=== PATIENT | female | born 1940 | race Caucasian/White ===

== ENCOUNTER 2017-02-12 07:58 | Inpatient (IN) | payer OTHER, BC ==
[~2017-02-12] VITALS: Ht 165.1 cm; Wt 43.8 kg
[2017-02-12] VITALS (25 sets, daily range): BP systolic 99–169; BP diastolic 38–150
--- NOTE | ~2017-02-12 | EKG ---
[place] [address] [place] [address] ELECTROCARDIOGRAM REPORT Name: LON COTA Room #: [facility].#: [id number] Admission: Attend Phys: Discharge: Date of : 36 Report #: [id number] THIS REPORT FOR: //name// [facility] ED Test Date: 2017-02-12 Test Time: 08:01:17 Pat Name: LON COTA Department: Room: Gender: F Personal Injury Attorney: : 1940 Requested By: Joselin Bonilla Order Number: [id number] MD: Fidel Howard Measurements Intervals [place] Rate: 78 P: 75 OR: 139 QRS: -40 QRSD: 91 T: 43 QT: 399 QTc: 455 Interpretive Statements Sinus rhythm Left axis deviation Anterior infarct, old No previous ECG available for comparison Electronically Signed On 02-12-2017 8:11:28 CDT by Fidel Howard [email or web address] <ELECTRONICALLY SIGNED> By: Fidel Howard MD, [facility] 02/12/17 0811 08 0801 Fidel Howard MD, FACC /EPI
[2017-02-12] MEDS ORDERED: LANTUS SUBQ ×2 (08:10)
[2017-02-12] MEDS ORDERED: NEXIUM40 MG PO (08:11)
[2017-02-12] MEDS ORDERED: SYNTHROID125 MCG PO (08:11)
[2017-02-12] MEDS ORDERED: LO-DOSE ASPIRIN81 M1 PO (08:12)
[2017-02-12] MEDS ORDERED: VITAMINC500 PO (08:12)
[2017-02-12] MEDS ORDERED: SINEMET 25-1001 EAC1 PO (08:13)
[2017-02-12] MEDS ORDERED: CEFPODOXIME PR200 M1 PO (08:14)
[2017-02-12] MEDS ORDERED: CYMBALTA30 MG PO (08:14)
[2017-02-12] MEDS ORDERED: ZESTRIL20 MG PO (08:14)
[2017-02-12] MEDS ORDERED: MYRBETRIQ25 MG PO (08:15)
[2017-02-12] MEDS ORDERED: MIDODRINE HCL 55 M1 PO (08:15)
[2017-02-12] MEDS ORDERED: NUPLAZID17 MG PO (08:15)
[2017-02-12 08:16] LABS: ABSOLUTE NEUTROPHILS 4.8 thou/uL (1.4-8.2); BASOPHILS 0.7 % (0.0-2.0); EOSINOPHILS 1.1 % (0.0-3.0); HEMATOCRIT 40.9 % (37.0-47.0); LYMPHOCYTES 17.5 % (24.0-44.0); MCH 32.2 pg (26.0-34.0); MCHC 31.7 g/dL (28.0-37.0); MCV 101.6 fL (80.0-100.0); MONOCYTES 5.2 % (1.0-8.0); PLATELET COUNT 230 thou/uL (150-400); POLYS 75.5 % (36.0-66.0); RBC 4.02 mil/uL (4.20-5.00); RDW 16.9 % (10.5-14.5); WBC 6.4 thou/uL (4.0-11.0)
[2017-02-12] MEDS ORDERED: SEROQUEL 25 MG25 M1 PO (08:18)
[2017-02-12] MEDS ORDERED: ZINC SULFATE 2220 MG PO (08:21)
[2017-02-12 08:23] LABS: MANUAL DIFF NO
[2017-02-12 08:29] LABS: ANION GAP 20 mmol/L (7-16); BUN 33 mg/dL (7-18); CALCIUM 9.7 mg/dL (8.5-10.1); CHLORIDE 96 mmol/L (98-107); CO2 15 mmol/L (21-32); CREATININE 1.6 mg/dL (0.6-1.0); SODIUM 131 mmol/L (136-145)
[2017-02-12 08:30] LABS: GLUCOSE 727 mg/dL (74-106)
[2017-02-12 08:34] LABS: TROPONIN-I < 0.04 ng/mL (<0.04-0.07)
[2017-02-12 08:54] LABS: URINE BILIRUBIN NEGATIVE (Negative); URINE BLOOD NEGATIVE (Negative); URINE COLOR YELLOW; URINE GLUCOSE-RANDOM* 3+ (Negative); URINE KETONES 3+ (Negative); URINE NITRITE POSITIVE (Negative); URINE PROTEIN (DIPSTICK) NEGATIVE (Negative); URINE SPECIFIC GRAVITY <= 1.005 (1.003-1.035); URINE UROBILINOGEN 0.2 E.U./dl (0.2-1.0)
[2017-02-12 09:16] LABS: BACTERIA >30 Many /HPF (None Seen); CASTS None Seen /LPF (None Seen); CRYSTALS None Seen /LPF (None Seen); SQUAMOUS 0-3 Few /LPF (0-3); URINE RBC None Seen /HPF (0-2); URINE WBC 0-5 Rare /HPF (0-5)
[2017-02-12 09:45] LABS: ABG SAMPLE TYPE ARTERIAL; HCO3 9.9 mmol/L (22.0-26.0); LACTATE 3.02 mmol/L (0.5-2.0); O2(CT) 15.9 mL/dL (15.0-23.0); O2Hb 95.2 % (92.0-98.0); PCO2 24.4 mmHg (35.0-45.0); PO2 92.6 mmHg (80.0-100.0); STICK SITE R.BRACHIAL; pH 7.225 (7.360-7.450); sO2 95.8 % (92.0-98.0); tCO2 10.6 mmol/L (24.0-30.0)
[2017-02-12 14:17] LABS: CALCIUM 8.5 mg/dL (8.5-10.1); CREATININE 1.5 mg/dL (0.6-1.0)
[2017-02-12 14:24] LABS: POTASSIUM 3.6 mmol/L (3.5-5.1)
[2017-02-12 17:09] LABS: CALCIUM 8.3 mg/dL (8.5-10.1); CREATININE 1.4 mg/dL (0.6-1.0); POTASSIUM 3.4 mmol/L (3.5-5.1)
[2017-02-13] VITALS (9 sets, daily range): BP systolic 113–200; BP diastolic 63–110
[2017-02-13 04:41] LABS: HEMATOCRIT 37.8 % (37.0-47.0); HEMOGLOBIN 12.3 gm/dL (12.0-15.0); MCH 32.1 pg (26.0-34.0); MCHC 32.4 g/dL (28.0-37.0); MCV 98.9 fL (80.0-100.0); PLATELET COUNT 184 thou/uL (150-400); RBC 3.83 mil/uL (4.20-5.00); RDW 16.9 % (10.5-14.5); WBC 7.5 thou/uL (4.0-11.0)
[2017-02-13 04:45] LABS: MANUAL DIFF YES
[2017-02-13 06:23] LABS: CALCIUM 8.9 mg/dL (8.5-10.1)
[2017-02-13 06:24] LABS: POTASSIUM 4.7 mmol/L (3.5-5.1)
[2017-02-13 07:30] LABS: ABSOLUTE NEUTROPHILS 7.2 thou/uL (1.4-8.2); ANISOCYTOSIS SLIGHT; PLATELET ESTIMATE NORMAL; TOTAL CELL COUNT 100
[2017-02-14 04:00] VITALS: BP 145/65
[2017-02-14 06:36] LABS: ABSOLUTE NEUTROPHILS 2.9 thou/uL (1.4-8.2); BASOPHILS 0.7 % (0.0-2.0); EOSINOPHILS 4.2 % (0.0-3.0); HEMATOCRIT 34.3 % (37.0-47.0); HEMOGLOBIN 11.4 gm/dL (12.0-15.0); LYMPHOCYTES 21.2 % (24.0-44.0); MCH 32.7 pg (26.0-34.0); MCHC 33.3 g/dL (28.0-37.0); MCV 98.2 fL (80.0-100.0); MONOCYTES 6.9 % (1.0-8.0); PLATELET COUNT 168 thou/uL (150-400); RBC 3.49 mil/uL (4.20-5.00); RDW 16.9 % (10.5-14.5); WBC 4.4 thou/uL (4.0-11.0)
[2017-02-14 06:40] LABS: MANUAL DIFF NO
[2017-02-14 06:56] LABS: CALCIUM 8.7 mg/dL (8.5-10.1); CREATININE 0.9 mg/dL (0.6-1.0); POTASSIUM 4.4 mmol/L (3.5-5.1)
[2017-02-14 08:02] VITALS: BP 143/68
[2017-02-14 11:59] VITALS: BP 139/84
[2017-02-14 15:13] VITALS: BP 163/78
[2017-02-14 20:00] VITALS: BP 197/88
[2017-02-15 04:00] VITALS: BP 179/78
[2017-02-15 06:19] LABS: ABSOLUTE NEUTROPHILS 2.8 thou/uL (1.4-8.2); BASOPHILS 0.6 % (0.0-2.0); EOSINOPHILS 3.3 % (0.0-3.0); HEMOGLOBIN 11.5 gm/dL (12.0-15.0); LYMPHOCYTES 23.7 % (24.0-44.0); MCH 32.7 pg (26.0-34.0); MCHC 33.8 g/dL (28.0-37.0); MCV 96.7 fL (80.0-100.0); MONOCYTES 9.4 % (1.0-8.0); PLATELET COUNT 165 thou/uL (150-400); RBC 3.52 mil/uL (4.20-5.00); RDW 16.9 % (10.5-14.5); WBC 4.5 thou/uL (4.0-11.0)
[2017-02-15 06:28] LABS: CREATININE 0.9 mg/dL (0.6-1.0); POTASSIUM 3.8 mmol/L (3.5-5.1)
[2017-02-15 06:29] LABS: MANUAL DIFF NO
[2017-02-15 08:49] VITALS: BP 194/90
== END 2017-02-15 13:13 | DRG 637 ==
LOC: ER 07:58 → EROBS 09:56 → ICU 09:56 → 3W 02-13 12:43
PROVIDERS: Emergency Medicine; Family Medicine; Nurse Practitioner Acute Care
DX: E11.00 Type 2 diabetes mellitus with hyperosmolarity without nonketotic hyperglycemic-hyperosmolar coma (NKHHC) (principal); E43 Unspecified severe protein-calorie malnutrition; N17.1 Acute kidney failure with acute cortical necrosis; N39.0 Urinary tract infection, site not specified; Z68.1 Body mass index [BMI] 19.9 or less, adult; E87.5 Hyperkalemia; E03.9 Hypothyroidism, unspecified; G20 Parkinson's disease; F02.80 Dementia in other diseases classified elsewhere, unspecified severity, without behavioral disturbance, psychotic disturbance, mood disturbance, and anxiety; I10 Essential (primary) hypertension; Z79.4 Long term (current) use of insulin; Z79.82 Long term (current) use of aspirin; Z79.899 Other long term (current) drug therapy; Z88.2 Allergy status to sulfonamides; Z28.21 Immunization not carried out because of patient refusal
CPT/HCPCS: 10203; 10779

== ENCOUNTER 2017-02-21 10:11 | Inpatient (IN) | payer OTHER, BC ==
[~2017-02-21] VITALS: Ht 157.5 cm; Wt 48.5 kg
--- NOTE | ~2017-02-21 | EKG ---
[address] [address] ELECTROCARDIOGRAM REPORT Name: LON COTA Room #: 170-1 ADM IN M.R.#: [id number] Admission: 02/21/17 Attend Phys: Alexey Neville MD Discharge: Date of : 36 Report #: [id number] THIS REPORT FOR: //name// [facility] ED Test Date: 2017-02-21 Test Time: 10:22:32 Pat Name: LNO COTA Department: Room: 170 Gender: F Cctv Technician: [id number] : 1940 Requested By: Joselin Bonilla Order Number: [id number] MD: Johnathan Hameed Measurements Intervals [place] Rate: 87 P: 53 [place]: 138 QRS: -34 QRSD: 83 T: 52 QT: 405 QTc: 488 Interpretive Statements Sinus rhythm Anterior infarct, old Baseline wander in lead(s) III,aVL Compared to ECG 02/12/2017 08:01:17 Left-axis deviation no longer present Myocardial infarct finding still present Electronically Signed On 02-21-2017 13:33:50 CDT by Johnathan Hameed [email or web address] <ELECTRONICALLY SIGNED> By: Johnathan Hameed MD 02/21/17 1333 1022 1022 Johnathan Hameed MD /EPI
[~2017-02-21 10:11] MED LIST: CEFPODOXIME PR200 M1 PO; CYMBALTA30 MG PO; LANTUS SUBQ; LO-DOSE ASPIRIN81 M1 PO; MIDODRINE HCL 55 M1 PO; MYRBETRIQ25 MG PO; NEXIUM40 MG PO; NUPLAZID17 MG PO; SEROQUEL 25 MG25 M1 PO; SINEMET 25-1001 EAC1 PO; SYNTHROID125 MCG PO; VITAMINC500 PO; ZESTRIL20 MG PO; ZINC SULFATE 2220 MG PO
[2017-02-21 10:15] VITALS: BP 95/41
[2017-02-21 10:37] LABS: ABSOLUTE NEUTROPHILS 5.2 thou/uL (1.4-8.2); BASOPHILS 0.5 % (0.0-2.0); EOSINOPHILS 0.7 % (0.0-3.0); HEMATOCRIT 35.6 % (37.0-47.0); HEMOGLOBIN 11.7 gm/dL (12.0-15.0); LYMPHOCYTES 15.7 % (24.0-44.0); MCH 32.4 pg (26.0-34.0); MCV 98.3 fL (80.0-100.0); MONOCYTES 8.5 % (1.0-8.0); PLATELET COUNT 247 thou/uL (150-400); POLYS 74.6 % (36.0-66.0); RBC 3.62 mil/uL (4.20-5.00); RDW 16.8 % (10.5-14.5)
[2017-02-21 10:38] LABS: MANUAL DIFF NO
[2017-02-21 10:47] LABS: ANION GAP 13 mmol/L (7-16); BUN 28 mg/dL (7-18); CALCIUM 8.8 mg/dL (8.5-10.1); CHLORIDE 101 mmol/L (98-107); CO2 19 mmol/L (21-32); CREATININE 1.6 mg/dL (0.6-1.0); GLUCOSE 420 mg/dL (74-106); POTASSIUM 3.7 mmol/L (3.5-5.1); SODIUM 133 mmol/L (136-145)
[2017-02-21 10:56] LABS: TROPONIN-I < 0.04 ng/mL (<0.04-0.07)
[2017-02-21 11:14] LABS: URINE BILIRUBIN NEGATIVE (Negative); URINE BLOOD NEGATIVE (Negative); URINE COLOR YELLOW; URINE GLUCOSE-RANDOM* 3+ (Negative); URINE KETONES 2+ (Negative); URINE NITRITE NEGATIVE (Negative); URINE PROTEIN (DIPSTICK) NEGATIVE (Negative); URINE UROBILINOGEN 0.2 E.U./dl (0.2-1.0)
[2017-02-21 11:23] VITALS: BP 113/57
[2017-02-21 12:49] VITALS: BP 122/60
[2017-02-21 14:40] VITALS: BP 148/81
[2017-02-21 20:30] VITALS: BP 183/84
[2017-02-22] VITALS (7 sets, daily range): BP systolic 103–186; BP diastolic 69–99
[2017-02-22 06:54] LABS: HEMATOCRIT 34.4 % (37.0-47.0); HEMOGLOBIN 11.5 gm/dL (12.0-15.0); MCH 32.5 pg (26.0-34.0); MCHC 33.4 g/dL (28.0-37.0); MCV 97.3 fL (80.0-100.0); RBC 3.53 mil/uL (4.20-5.00); RDW 17.1 % (10.5-14.5); WBC 4.7 thou/uL (4.0-11.0)
[2017-02-22 07:29] LABS: CALCIUM 8.8 mg/dL (8.5-10.1); CREATININE 0.8 mg/dL (0.6-1.0); POTASSIUM 4.2 mmol/L (3.5-5.1)
[2017-02-23 03:50] VITALS: BP 155/75
[2017-02-23 10:22] VITALS: BP 215/110
[2017-02-23 12:14] VITALS: BP 217/112
[2017-02-23 16:22] VITALS: BP 189/104
[2017-02-23 19:40] VITALS: BP 158/93
[2017-02-24 04:40] VITALS: BP 160/90
[2017-02-24 04:53] LABS: HEMATOCRIT 36.6 % (37.0-47.0); HEMOGLOBIN 12.2 gm/dL (12.0-15.0); MCH 32.5 pg (26.0-34.0); MCHC 33.4 g/dL (28.0-37.0); MCV 97.4 fL (80.0-100.0); RBC 3.76 mil/uL (4.20-5.00); RDW 16.6 % (10.5-14.5); WBC 4.9 thou/uL (4.0-11.0)
[2017-02-24 05:06] LABS: CALCIUM 9.4 mg/dL (8.5-10.1); CREATININE 0.8 mg/dL (0.6-1.0); POTASSIUM 3.6 mmol/L (3.5-5.1)
[2017-02-24 07:42] VITALS: BP 162/79
[2017-02-24 12:27] VITALS: BP 208/88
[2017-02-24] MEDS ORDERED: PRINIVIL5 MG PO (13:43)
== END 2017-02-24 15:57 | DRG 312 ==
LOC: ER 10:11 → EROBS 11:32 → 3W 11:32
PROVIDERS: Emergency Medicine; Hospitalist
DX: I95.1 Orthostatic hypotension (principal); N17.0 Acute kidney failure with tubular necrosis; G20 Parkinson's disease; N18.9 Chronic kidney disease, unspecified; E11.22 Type 2 diabetes mellitus with diabetic chronic kidney disease; E86.0 Dehydration; I12.9 Hypertensive chronic kidney disease with stage 1 through stage 4 chronic kidney disease, or unspecified chronic kidney disease; E03.9 Hypothyroidism, unspecified; Z90.12 Acquired absence of left breast and nipple; Z85.3 Personal history of malignant neoplasm of breast; Z79.4 Long term (current) use of insulin; Z79.82 Long term (current) use of aspirin; Z79.899 Other long term (current) drug therapy; Z88.2 Allergy status to sulfonamides
CPT/HCPCS: 10779